=== PATIENT | female | born 2000 ===

== ENCOUNTER 2024-09-18 12:45 | Outpatient (REF) | payer SELFPAY ==
[2024-09-18 16:34] LABS: ALT 31 U/L (14-59); AST 15 U/L (15-37); Albumin 4.1 g/dL (3.4-5.0); Alkaline Phosphatase 102 U/L (46-116); Bilirubin, Direct 0.2 mg/dL (0.0-0.2); Bilirubin, Total 0.5 mg/dL (0.2-1.0); Total Protein 6.9 g/dL (6.4-8.2)
[2024-09-20 09:32] LABS: HBs Antibody, Quant <3.1 mIU/mL (See Note); Hepatitis B Surface Ab Negative (See Note)
[2024-09-20 09:49] LABS: Hepatitis B Surface Ag Negative (Negative)
[2024-09-20 10:23] LABS: HIV-1/2 Ag & Ab Screen Negative (Negative)
[2024-09-20 12:12] LABS: Hepatitis C Ab w Rflx HCV PCR Negative (Negative)
== END 2024-09-18 12:46 | disposition home or self-care (01) ==
LOC: LBN 12:45
PROVIDERS: Visit Provider Family Medicine
DX: Z11.4 Encounter for screening for human immunodeficiency virus [HIV] (principal); Z11.59 Encounter for screening for other viral diseases
CPT/HCPCS: 80076; 86706; 86803; 87340; 87389

== ENCOUNTER 2024-11-11 16:17 | Outpatient (CLI) | payer SELFPAY ==
[2024-11-11 22:47] LABS: HBs Antibody, Quant <3.1 mIU/mL (See Note); Hepatitis B Surface Ab Negative (See Note)
[2024-11-11 23:27] LABS: Hepatitis C Ab w Rflx HCV PCR Negative (Negative)
[2024-11-11 23:29] LABS: HIV-1/2 Ag & Ab Screen Negative (Negative)
== END 2024-11-11 16:18 | disposition home or self-care (01) ==
LOC: LBO 16:18
DX: Z77.21 Contact with and (suspected) exposure to potentially hazardous body fluids (principal)
CPT/HCPCS: 36415; 86706; 86803; 87340; 87389